=== PATIENT | male | born 1955 | race Caucasian/White ===

== ENCOUNTER 2019-06-12 08:18 | Day surgery (SDC) | payer BC ==
[2019-06-12 08:50] VITALS: TEMP 97.6; BMI 22.3
[2019-06-12] MEDS ORDERED: PROPOFOL 20 ML ONE ×4 (10:03)
[2019-06-12 11:21] VITALS: BP 102/62; PULSE 60
== END 2019-06-12 11:15 | disposition home or self-care (01) ==
LOC: FASU-ENDO 08:18
PROVIDERS: ATTEND Internal Medicine Gastroenterology
PROC: 0DJD8ZZ Inspection of Lower Intestinal Tract, Via Natural or Artificial Opening Endoscopic (ICD-10-PCS; principal; 2019-06-12 10:07)
DX: Z12.11 Encounter for screening for malignant neoplasm of colon (principal)